=== PATIENT | female | born 2000 | race Caucasian/White ===

== ENCOUNTER → 2022-01-19 | Outpatient (CLI) | payer OTHER ==
--- NOTE | 2022-01-19 10:37 | MR ---
EXAMINATION TYPE: MR knee RT wo con DATE OF EXAM: 01/19/2022 COMPARISON: Outside right knee x-ray December 27, 2021 HISTORY: Inner and outer right knee pain with locking and swelling since volleyball injury 6 months a go TECHNIQUE: Multiplanar, multisequence imaging of the right knee is performed without IV contrast. FINDINGS: MEDIAL MENISCUS: Some subtle increased signal posterior aspect posterior horn could reflect some intr asubstance tearing sagittal image 10 and coronal image 21. LATERAL MENISCUS: Anterior and posterior horns are intact without tear. CRUCIATE LIGAMENTS: The anterior and posterior cruciate ligaments are intact and unremarkable. COLLATERAL LIGAMENTS: The medial collateral ligament and lateral collateral ligament complex are inta ct and unremarkable. EXTENSOR MECHANISM: Visualized quadriceps and patellar tendons are intact. EFFUSION: No significant suprapatellar joint effusion. POPLITEAL CYST: No popliteal/german cyst. TRICOMPARTMENT SPACES: Tricompartment joint spaces are preserved. No significant spurring is seen. CARTILAGE: Tricompartment articular cartilage is maintained. BONE MARROW SIGNAL: No focal abnormal marrow signal is appreciated. OTHER: No additional significant abnormality is appreciated. IMPRESSION: Possible intrasubstance tear posterior horn medial meniscus. No ligamentous tear identifi ed.
== END | disposition home or self-care (01) ==
LOC: RADMRIMAIN 08:01
PROVIDERS: ATTEND Orthopaedic Surgery
DX: M25.561 Pain in right knee (principal); M79.89 Other specified soft tissue disorders

== ENCOUNTER 2022-03-08 10:01 | Day surgery (SDC) | payer OTHER ==
[2022-03-06 15:51] VITALS: BMI 27.1
--- NOTE | 2022-03-08 04:45 | HP ---
HISTORY AND PHYSICAL DATE OF SURGERY: 03/08/2022. HISTORY OF PRESENT ILLNESS: Evelyn Hood is a 22-year-old patient seen with progressive right knee pain. We discussed options for treatment, she elected to proceed with right knee arthroscopy. Consent was obtained. PAST MEDICAL HISTORY: Noncontributory. PAST SURGICAL HISTORY: Noncontributory. DAILY MEDICATIONS: None. ALLERGIES: None reported. SOCIAL HISTORY: She denies tobacco use. PHYSICAL EVALUATION OF THE RIGHT KNEE: Range of motion is +2 to 135, mild effusion. Tenderness in medial joint line. Positive medial Scot's. Ligaments appear stable. Distal neurovascular exam is intact. RADIOGRAPHS: Right knee radiographs reveal no osseous abnormality. MRI of right knee revealed medial meniscal tear. IMPRESSION: Internal derangement of right knee with medial meniscal tear. PLAN: Right knee arthroscopy with partial medial meniscectomy and debridement. MMODL / IJN: [id number] /
[~2022-03-08 10:01] MED LIST: HYDROmorphone 0.5 MG/0.5 ML SYRINGE IVP PRN; LACTATED RINGERS 1,000 ML IV SCH; LIDOCAINE 1% (10MG/ML) FOR IV START INTRADERMA PRN; MIDAZOLAM 2 MG/2 ML VIAL IV PRN
[2022-03-08 10:52] VITALS: TEMP 97.4
[2022-03-08] MEDS ORDERED: ONDANSETRON 4 MG/2 ML VIAL ONE (10:57)
[2022-03-08] MEDS ORDERED: DEXAMETHASONE SOD PHOSPHATE 4 MG/ML 1 ML VIAL IV ONE (11:09)
[2022-03-08] MEDS ORDERED: ONDANSETRON 4 MG/2 ML VIAL IVP ONE (11:10)
[2022-03-08] MEDS ORDERED: MIDAZOLAM 2 MG/2 ML VIAL ONE (11:36)
[2022-03-08] MEDS ORDERED: LIDOCAINE 2% INJ 20 MG/ML (2 ML VIAL) ONE (11:36)
[2022-03-08] MEDS ORDERED: PROPOFOL 10 MG/ML 20 ML VIAL IV ONE (11:36)
[2022-03-08] MEDS ORDERED: fentaNYL (PF) 50 MCG/ML 2 ML AMP ONE (11:36)
[2022-03-08] MEDS ORDERED: KETOROLAC 30 MG/ML 1 ML VIAL ONE (11:36)
[2022-03-08] MEDS ORDERED: BUPIVACAINE (PF) 0.25% 30 ML VIAL INTRAARTIC ONE ×2 (11:57→12:05)
--- NOTE | 2022-03-08 12:16 | P.OP ---
Date of Procedure: 03/08/22 Preoperative Diagnosis: Internal derangement right knee Postoperative Diagnosis: 1. Lateral meniscal tear right knee 2. Reactive synovitis lateral and suprapatellar compartments right knee Procedure(s) Performed: 1. Arthroscopic partial lateral meniscectomy right knee 2. Arthroscopic partial synovectomy lateral and suprapatellar compartments right knee Anesthesia: JOSE JUAN local Surgeon: Marcelino Nance Estimated Blood Loss (ml): 5 Pathology: none sent Condition: stable Disposition: PACU Indications for Procedure: 22-year-old patient seen with progressive right knee pain. After treatment options were discussed she elected to proceed with arthroscopy Operative Findings: see description of procedure Description of Procedure: Patient was taken to the operative suite. Patient underwent a general anesthetic by the department of anesthesia. Patient was given preoperative antibiotics. The right lower extremity was placed in a well-padded arthroscopic leg lopez. The right leg was prepped and draped in the normal sterile orthopedic fashion. A lateral parapatellar and suprapatellar incision was made. Trochars were inserted. Arthroscopy was initiated. Suprapatellar pouch revealed diffuse thick reactive synovitis. The patellofemoral joint appeared to articulate congruently. There was no chondromalacia present. The scope was guided into the medial gutter. There was no evidence for loose bodies or plica. The scope was then guided into the medial compartment. A medial parapatellar incision was made. Trocar inserted followed by probe. The medial meniscus was probed and was found to be stable. There was no chondromalacia present. There was no synovitis present. Scope and probe were then guided into the intercondylar notch. Cruciates were identified, probed and found to be stable. The scope and probe were then guided into lateral compartment. There was a small radial tear in the posterior corner lateral meniscus. There was some reactive synovitis anteriorly. There was no chondromalacia present. I performed a partial lateral meniscectomy getting down to stable meniscal tissue. I performed a partial synovectomy. The residual meniscus was found to be stable. There was good decompression of the synovitis anteriorly. The scope was in guided back into the suprapatellar compartment. I introduced a motorized shaver into the suprapatellar compartment. I performed a partial synovectomy. Shaver was removed. There was good decompression of synovitis. Instruments were now removed from the joint. The joint was infiltrated with .25% Marcaine. Steri-Strips were applied to the portal sites. Sterile dressings were applied. The patient was placed into a ZAC hose. No tourniquet was utilized. The patient was awakened, transferred to a bed and taken to recovery stable sat isfactory condition.
[2022-03-08 13:01] VITALS: RESP 17
[2022-03-08] MEDS ORDERED: HYDROcodone/APAP 5-325MG 1 EACH TAB ONE (13:08)
[2022-03-08 13:34] VITALS: BP 110/72; PULSE 88
== END 2022-03-08 13:57 | disposition home or self-care (01) ==
LOC: OR 10:01
PROVIDERS: ATTEND Orthopaedic Surgery
DX: M23.300 Other meniscus derangements, unspecified lateral meniscus, right knee (principal); M65.9 Synovitis and tenosynovitis, unspecified
CPT/HCPCS: 81025; 29881; J2250; J1100; J2405; J0690; J3010; J1885; J2704; J1170; J2001